=== PATIENT | male | born 1960 | race Caucasian/White ===

== ENCOUNTER 2017-11-23 01:47 | Emergency (ER) | payer BC ==
[~2017-11-23] VITALS: Ht 175.3 cm; Wt 93.0 kg
--- NOTE | ~2017-11-23 | EKG ---
[place] [address] [facility] [place] [address] ELECTROCARDIOGRAM REPORT Name: LACY SERNA Room #: [id number] Admission: 11/23/17 Attend Phys: Discharge: 11/23/17 Date of : 60 Report #: [id number] THIS REPORT FOR: //name// [facility] ED Test Date: 2017-11-23 Test Time: 01:53:44 Pat Name: LACY SERNA Department: Room: Gender: Biomedical Technician: [facility] : 1960 Requested By: Jayjay Aiken Order Number: [id number] MD: Bijan Santoro Measurements Intervals [place] Rate: 63 P: 52 NM: 168 QRS: -18 QRSD: 96 T: 57 QT: 407 QTc: 417 Interpretive Statements Sinus rhythm Inferior infarct, old No previous ECG available for comparison Electronically Signed On 11-24-2017 14:02:16 CDT by Bijan Santoro [email or web address] <ELECTRONICALLY SIGNED> By: Bijan Santoro MD, [facility] 11/24/17 1402 [id number] [id number] Bijan Santoro MD, FAC /EPI
[2017-11-23] MEDS ORDERED: NOHOMEMEDICATIONS (01:54)
[2017-11-23 02:10] LABS: ABSOLUTE NEUTROPHILS 3.8 thou/uL (1.4-8.2); BASOPHILS 0.7 % (0.0-2.0); EOSINOPHILS 1.5 % (0.0-3.0); HEMATOCRIT 41.1 % (42.0-52.0); HEMOGLOBIN 14.1 gm/dL (14.0-18.0); MCH 28.7 pg (26.0-34.0); MCHC 34.4 g/dL (28.0-37.0); MCV 83.4 fL (80.0-100.0); MONOCYTES 10.5 % (1.0-8.0); PLATELET COUNT 192 thou/uL (150-400); POLYS 53.3 % (36.0-66.0); RBC 4.93 mil/uL (4.50-6.00); RDW 13.1 % (10.5-14.5); WBC 7.1 thou/uL (4.0-11.0)
[2017-11-23 02:12] LABS: ANION GAP 4 mmol/L (7-16); BUN 17 mg/dL (7-18); CALCIUM 8.4 mg/dL (8.5-10.1); CHLORIDE 106 mmol/L (98-107); CO2 27 mmol/L (21-32); CREATININE 1.5 mg/dL (0.7-1.3); GLUCOSE 127 mg/dL (74-106); POTASSIUM 3.7 mmol/L (3.5-5.1); SODIUM 137 mmol/L (136-145)
[2017-11-23 02:22] LABS: ALBUMIN 3.5 g/dL (3.4-5.0); MAGNESIUM 1.9 mg/dL (1.8-2.4); SGOT 22 U/L (15-37); SGPT 30 U/L (30-65); TOTAL BILIRUBIN 0.6 mg/dL (<0.1-1.0); TOTAL PROTEIN 6.9 g/dL (6.4-8.2); TROPONIN-I <0.06 ng/mL (<0.06)
[2017-11-23] MEDS ORDERED: TRAMADOL 50 MG50 MG PO (03:40)
[2017-11-23 04:19] VITALS: BP 123/91
== END 2017-11-23 04:00 | disposition home or self-care (01) ==
LOC: ER 01:47
PROVIDERS: Emergency Medicine
DX: R55 Syncope and collapse (principal); S09.90XA Unspecified injury of head, initial encounter; S16.1XXA Strain of muscle, fascia and tendon at neck level, initial encounter; E86.0 Dehydration; R19.7 Diarrhea, unspecified; S00.83XA Contusion of other part of head, initial encounter; Z90.49 Acquired absence of other specified parts of digestive tract; W18.30XA Fall on same level, unspecified, initial encounter; Y93.89 Activity, other specified; Y92.89 Other specified places as the place of occurrence of the external cause; Y99.8 Other external cause status

== ENCOUNTER 2018-10-27 13:29 | Emergency (ER) | payer OTHER ==
[~2018-10-27] VITALS: Ht 175.3 cm; Wt 93.0 kg
[~2018-10-27 13:29] MED LIST: NOHOMEMEDICATIONS; TRAMADOL 50 MG50 MG PO
[2018-10-27 13:30] VITALS: BP 158/91
[2018-10-27] MEDS ORDERED: KEFLEX500 M1 PO (15:00)
== END 2018-10-27 15:30 | disposition home or self-care (01) ==
LOC: ER 13:29
DX: S61.411A Laceration without foreign body of right hand, initial encounter (principal); Z88.5 Allergy status to narcotic agent; Z90.49 Acquired absence of other specified parts of digestive tract; W26.8XXA Contact with other sharp object(s), not elsewhere classified, initial encounter; Y92.89 Other specified places as the place of occurrence of the external cause; Y93.89 Activity, other specified; Y99.8 Other external cause status